=== PATIENT | male | born 1960 | race Caucasian/White ===

== ENCOUNTER 2023-01-15 16:53 | Emergency (ER) | payer BC ==
[~2023-01-15] VITALS: Ht 175.3 cm; Wt 110.0 kg
[2023-01-15 19:18] LABS: HEMATOCRIT 46.1 % (42.0-52.0)
[2023-01-15 19:19] LABS: BASOPHILS % (AUTO) 0.2 % (0-1); EOSINOPHILS % (AUTO) 0.2 % (0-6); LYMPHOCYTES # (AUTO) 0.9 X10'3 (1.1-4.8); LYMPHOCYTES % (AUTO) 7.2 % (21-51); MEAN CORPUSCULAR HEMOGLOBIN 32.7 PG (27.0-31.0); MEAN CORPUSCULAR HGB CONC 34.8 g/dL (33.0-36.5); MEAN PLATELET VOLUME 7.9 FL (7.4-10.4); MONOCYTES # (AUTO) 0.8 X10'3 (0-0.9); MONOCYTES % (AUTO) 5.9 % (2-12); NEUTROPHILS # (AUTO) 11.1 X10'3 (1.8-7.7); NEUTROPHILS % (AUTO) 86.5 % (42-75); PLATELET COUNT 202 X10'3 (140-440); RED BLOOD COUNT 4.91 X10'6 (4.70-6.10); RED CELL DISTRIBUTION WIDTH 13.9 % (11.5-14.5); WHITE BLOOD COUNT 12.8 X10'3 (4.5-11.0)
[2023-01-15 19:22] LABS: ALANINE AMINOTRANSFERASE 21 U/L (12-78); ALBUMIN 4.2 G/DL (3.4-5.0); ALKALINE PHOSPHATASE 58 IU/L (46-116); ANION GAP 6 (8-16); ASPARTATE AMINO TRANSFERASE 18 U/L (10-37); BILIRUBIN,TOTAL 0.9 MG/DL (0.1-1.0); BLOOD UREA NITROGEN 22 MG/DL (7-18); BUN/CREATININE RATIO 12.5 (10.0-20.0); CALCIUM 9.7 MG/DL (8.5-10.1); CHLORIDE 98 MMOL/L (99-107); CREATININE 1.76 MG/DL (0.60-1.10); GLUCOSE 156 MG/DL (70-104); POTASSIUM 4.5 MMOL/L (3.5-5.1); SODIUM 135 MMOL/L (135-145); TOTAL CARBON DIOXIDE 31.3 MMOL/L (24-32); TOTAL PROTEIN 8.3 G/DL (6.4-8.2); eCRCL 42 ML/MIN; eGFR 39 ML/MIN
[2023-01-15 19:23] LABS: LIPASE 23 U/L (16-77)
[2023-01-15 21:25] LABS: BILIRUBIN,URINE NEGATIVE (Neg); CLARITY,URINE CLEAR (Clear); COLOR,URINE YELLOW (Yellow); GLUCOSE, URINE NEGATIVE (Neg); KETONES,URINE 40 mg/dl (Neg); LEUKOCYTE ESTERASE ,URINE NEGATIVE (Neg); NITRITES, URINE NEGATIVE (Neg); OCCULT BLOOD,URINE SMALL (Neg); PROTEIN,URINE TRACE mg/dl (Neg); UROBILINOGEN,URINE 0.2 E.U/dL (0.2-1.0)
[2023-01-15 21:32] LABS: UA COLLECTION TYPE NON-SPECIFIED
[2023-01-15 21:41] LABS: BACTERIA,URINE FEW /HPF (Neg); MUCUS STRANDS NONE SEEN /LPF (Neg); SQUAMOUS EPITHELIAL CELL,UR NONE SEEN /LPF (FEW)
[2023-01-15 21:42] LABS: TRANSITIONAL EPI CELLS,URINE FEW /HPF
[2023-01-16] MEDS ORDERED: lactulose 20gm/30ml cup PO ONE (03:05)
[2023-01-16] MEDS ORDERED: ondansetron/PF 4mg/2ml inj IV ONE (03:30)
[2023-01-16] MEDS ORDERED: ONDA8TAB13 PO (04:28)
[2023-01-16] MEDS ORDERED: CEPH250T PO (04:28)
[2023-01-16] MEDS ORDERED: HYDR-3965 PO (04:28)
[2023-01-16] MEDS ORDERED: cephalexin 250mg capsule PO ONE (04:30)
[2023-01-16 05:01] VITALS: BP 162/107; PULSE 95; RESP 16; TEMP 98.6; O2SAT 99
== END 2023-01-16 05:02 | disposition home or self-care (01) ==
LOC: ER 16:55
DX: N20.0 Calculus of kidney (principal); Z79.2 Long term (current) use of antibiotics; Z79.899 Other long term (current) drug therapy
CPT/HCPCS: 36415; 74176; 80053; 81001; 83690; 85025; 87088; 96374; 99285; J2405